=== PATIENT | male | born 1985 | race Caucasian/White ===

== ENCOUNTER 2020-12-20 10:50 | Emergency (ER) | payer OTHER ==
[2020-12-20] MEDS ORDERED: SULFAMETHOX-TMP DS 800/160 TAB ONE (12:21)
[2020-12-20] MEDS ORDERED: CEFAZOLIN SODIUM 1 GM VIAL ONE (12:21)
[2020-12-20] MEDS ORDERED: TETANUS/DIPHTHERIA TOXOID [ADULT] 0.5 ML VIAL IM ONE (12:22)
[2020-12-20] MEDS ORDERED: SODIUM CHLORIDE 0.9% 50 ML IV ONE (12:23)
== END 2020-12-20 13:07 | disposition home or self-care (01) ==
LOC: EDH 10:50
DX: S50.312A Abrasion of left elbow, initial encounter (principal); M70.22 Olecranon bursitis, left elbow; X58.XXXA Exposure to other specified factors, initial encounter; Y93.89 Activity, other specified; Y92.89 Other specified places as the place of occurrence of the external cause; Y99.8 Other external cause status
CPT/HCPCS: 73080; 90471; 90714; 96365; 99284; J0690